=== PATIENT | female | born 1985 | race Caucasian/White ===

== ENCOUNTER → 2022-02-02 | Outpatient (CLI) | payer BC ==
[2022-02-02 18:09] LABS: HCT 41.2 % (37.2-46.3); HGB 13.3 g/dL (12.0-15.0); MCH 27.1 pg (27.0-32.0); MCHC 32.3 g/dL (32.0-37.0); MCV 83.9 fL (80.0-97.0); Mean Platelet Volume 10.9 fL (9.5-12.2); NRBC Per 100 WBC 0 /100 WBCS (0.0-0.0); Platelet Count 273 X 10*3/uL (140-440); RBC 4.91 X 10*6/uL (4.10-5.20); RDW 12.7 % (11.5-14.5); WBC 5.29 X 10*3/uL (4.50-10.00)
[2022-02-02 18:26] LABS: ALT 32 U/L (8-44); AST 24 U/L (13-35); African American GFR (CKD) 96.7 (60.0-200.0); Albumin 4.7 g/dL (3.8-4.9); Albumin/Globulin Ratio 2.24 (1.60-3.17); Alkaline Phosphatase 55 U/L (41-126); Calcium 9.4 mg/dL (8.7-10.3); Carbon Dioxide 24.7 mmol/L (20.0-27.5); Chloride 103 mmol/L (96-109); Chol/HDL Ratio 3.04 Ratio; Globulin 2.1 g/dL (1.6-3.3); Glucose 84 mg/dL (70-110); LDL Cholesterol,Calculated 97.6 mg/dL (0.0-131.0); Non-African American GFR(CKD) 83.4 (60.0-200.0); Potassium 4.3 mmol/L (3.5-5.5); Sodium 140 mmol/L (135-145); Total Protein 6.8 g/dL (6.2-8.2); VLDL Calculation 11.12 mg/dL (5.00-40.00)
[2022-02-02 20:09] LABS: Gliadin AB IgA, Deaminated NEGATIVE (NEGATIVE); Gliadin AB IgA, Unit <0.2 U/mL; Gliadin AB IgG, Deaminated NEGATIVE (NEGATIVE); Gliadin AB IgG, Unit <0.4 U/mL
== END | disposition home or self-care (01) ==
LOC: LABWHC1 10:40
PROVIDERS: ATTEND Physician Assistant
DX: K58.1 Irritable bowel syndrome with constipation (principal); R09.89 Other specified symptoms and signs involving the circulatory and respiratory systems; R73.02 Impaired glucose tolerance (oral); Z68.36 Body mass index [BMI] 36.0-36.9, adult; Z76.89 Persons encountering health services in other specified circumstances; E66.9 Obesity, unspecified; R60.0 Localized edema
CPT/HCPCS: 36415; 80053; 80061; 82785; 83036; 83516; 84443; 85027; 86003